=== PATIENT | female | born 1975 | race Hispanic/Latino ===

== ENCOUNTER 2020-10-28 12:36 | Emergency (ER) | payer MEDICARE ==
[~2020-10-28] VITALS: Ht 167.6 cm; Wt 98.9 kg
[~2020-10-28 12:36] MED LIST: ATENOLOL25 MG PO; CYCLOSPORINE PO; FUROSEMIDE PO; GEMFIBROZIL600 MG PO; LEVOTHYROXINE PO; NIZATIDINE PO; PREDNISONE5 MG PO; RAMIPRIL10 MG PO; RAPAMUNE1 MG PO; SMZ PO; TMP PO; TORSEMIDE10 MG PO
== END 2020-10-28 14:02 | disposition home or self-care (01) ==
LOC: FSED 12:53
DX: R42 Dizziness and giddiness (principal); I10 Essential (primary) hypertension; R51.9 Headache, unspecified; Z94.0 Kidney transplant status
CPT/HCPCS: 80053; 85025; 99282

== ENCOUNTER 2021-11-20 23:21 | Emergency (ER) | payer MEDICARE, MEDICAID ==
[~2021-11-20] VITALS: Ht 167.6 cm; Wt 104.3 kg
== END 2021-11-21 01:25 | disposition home or self-care (01) ==
LOC: FSED 23:33
DX: R51.9 Headache, unspecified (principal); I12.0 Hypertensive chronic kidney disease with stage 5 chronic kidney disease or end stage renal disease; E11.22 Type 2 diabetes mellitus with diabetic chronic kidney disease; N18.6 End stage renal disease; Z94.0 Kidney transplant status; R09.81 Nasal congestion; E03.9 Hypothyroidism, unspecified
CPT/HCPCS: 99282